=== PATIENT | male | born 1965 | race Caucasian/White ===

== ENCOUNTER 2025-01-28 08:27 | Emergency (ER) | payer OTHER, SELFPAY ==
--- NOTE | 2025-01-28 08:31 | ED_ITS ---
HPI - URI/Sore Throat General Chief Complaint: Upper Respiratory Infection Stated Complaint: vomiting Time Seen by Provider: 01/28/25 08:31 Source: patient Mode of arrival: ambulatory Limitations: no limitations History of Present Illness HPI Narrative: Jacques is a 59-year-old male patient presenting to the clinic today with complaints of body aches, runny nose, cough, nausea vomiting, diarrhea, and chills. Symptoms started yesterday afternoon. Thinks he may have COVID. Denies any chest pain or shortness of breath. Related Data Allergies Allergy/AdvReac Type Severity Reaction Status Date / Time Yostsvr-[id number] Reductase AdvReac Intermediate Weakness Verified 01/28/25 08:53 Inhibitor Review of Systems Review of Systems: Pertinent positives per HPI. Patient denies any rash, headache, visual changes, dizziness, shortness of breath, chest pain, palpitations, constipation, abdominal pain, or any urinary issues. [facility] Family History Family History Other Cerebrovascular accident Diabetes mellitus Family history of malignant neoplasm Hypertension Social History Social History Smoking status: Never smoker Alcohol intake: current Comments At the time of my signature, I reviewed and agree with the nursing past medical, surgical, social, and family history. There is no relevant family history pertinent to the patient complaint. Exam Narrative: General: Well-developed, well nourished, in no apparent distress Head: Normocephalic, atraumatic Eyes: Pupils equally round and reactive to light bilaterally, EOM intact, sclera and conjunctive clear, no discharge, lids normal Ears: TMs intact and clear, ear canals clear, no drainage, grossly hearing normal. Nose: Nares patent, clear nasal discharge, no inflammation, no sinus tenderness. Mouth: Oral pharynx without lesions or masses, good dentition, MMM. Neck: Supple, trachea midline, no enlargement of anterior or posterior cervical nodes, no thyroid masses or goiter palpable. Cardio: Regular rate and rhythm, s1 and s2 normal, no murmur appreciated. Resp: Clear to auscultation bilaterally, no rhonchi, rales, wheezing or rubs Abdomen: Soft, pliable, bowel sounds present in all quadrants, non-tender to palpation, no organomegly, no CVAT tenderness. Course Course Emergency Course: Portions of this record may have been created with voice recognition software. Level of Care: Express Care Visit Vital Signs Vital signs: Vital Signs Temperature 36.4 C 01/28/25 08:43 Pulse Rate 102 H 01/28/25 08:43 Respiratory Rate 18 01/28/25 08:43 Blood Pressure 160/92 H 01/28/25 08:43 Pulse Oximetry 99 01/28/25 08:43 Oxygen Delivery Room Air 01/28/25 08:43 Temperature 36.4 C 01/28/25 08:43 Pulse Rate 102 H 01/28/25 08:43 Respiratory Rate 18 01/28/25 08:43 Blood Pressure 160/92 H 01/28/25 08:43 Pulse Oximetry 99 01/28/25 08:43 Oxygen Delivery Room Air 01/28/25 08:43 Vital signs reviewed MDM - URI/Sore Throat MDM Narrative Medical decision making narrative: At the time of visit patient is resting comfortably on the exam table. Patient appears to be nontoxic. Labs: COVID and influenza testing was performed. COVID testing was positive. Influenza testing was negative. Plan: Patient has COVID-19. Prescription for Zofran and paxlovid was sent to the pharmacy. Supportive measures were discussed with the patient and they voiced understanding discharge instructions and agrees to treatment plan. Return precautions reviewed Differential Diagnosis Differential diagnosis: Likely upper respiratory infection, otitis media, sinusitis, viral infection, bronchitis, influenza, pharyngitis and other (COVID) Lab Data Labs: Lab Results 01/28/25 01/28/25 Range/Units 08:51 08:52 POC Influenza A Ag Negative (Negative) POC Influenza B Ag Negative (Negative) POC SARS CoV-2 Ag Positive (Negative) Discharge Plan Discharge Clinical Impression: COVID-19 Patient Disposition: Home, Self-Care Condition: Stable Instructions: Antibiotic Form, How to Recover from COVID-19 at Home (ED) Additional Instructions: Take prescription medications only as prescribed-Paxlovid and ondansetron Increase fluids and stay well hydrated Tylenol/motrin for pain/fever Flonase and OTC antihistamines as directed Vicks vapor rub to open sinuses Sinus rinses for congestion Cepacol spray, cough drops, throat lozenges, warm tea with honey/lemon, gargle salt water to soothe throat BRAT diet for diarrhea Clear liquids x 24 hours then advance as tolerated for nausea/vomiting Go to the ED if you develop a worsening in your condition- high fever not controlled by Tylenol or Motrin, dehydration, weakness, lethargy, shortness of breath, or chest pain. Follow up with your PCP in 3-5 days if symptoms persist. Patient Language: Paraguayan Prescriptions: New ondansetron 4 mg tablet,disintegrating 4 mg PO Q6H PRN (Reason: nausea and vomiting) 3 Days Qty: 12 0RF Paxlovid 300 mg (150 mg x 2)-100 mg tablets,dose pack See Rx Instructions PO .COMPLEX Qty: 30 0RF Rx Instructions: take TWO 150 mg tablets of nirmatrelvir with ONE 100 mg tablet of ritonavir twice daily for 5 days Follow-up/Referrals: MARCUS,SHIRA BRAVO [Primary Care Provider] - Stand Alone Forms: Work/School Release IP Time of Disposition: 08:58 Quality NIHSS Nursing Documentation ED NIHSS nursing documentation: reviewed/agree
[2025-01-28 08:43] VITALS: BP 160/92; PULSE 102; RESP 18; TEMP 36.4; O2SAT 99
--- OUTSIDE RECORDS SUMMARY | 2025-01-28 08:47 | XMS_ITS | Patient Health Summary ---
Author Organization [facility] Address [address] [place] [address] Care Team Providers Care Gill Box Operator Name Role Phone Nicole Morfin APRN-AQUACULTURE DIRECTOR Primary Care Provider [phone] Note from [facility],non-owned Affiliates and Associated Physician Practices is amultiple site organization consisting of ambulatory clinics and hospital sitesin [place], [place], [place] and [place]. This disclosure is being madepursuant to the Care Everywhere program and may not contain all information available regarding this patient. Last updated 18.[facility] [employer] Allergies * Simvastatin(Unknown) Medications * Be aware that medications may not be up to date on this document. Alwaysverify current medications with the patient. * ALPRAZolam (Xanax) 1 MG tablet(Started 05/14/2023) Take 1 (one) tablet by mouth 2 times daily as needed anxiety * citalopram (CeleXA) 40 MG tablet(Started 05/13/2023) Take 1 (one) tablet by mouth once daily * NA-K-MG sulfates (Suprep) 17.5-3.13-1.6 GM/177ML solution(Started 06/05/2023) TAKE 177ML BY MOUTH EVERY 12 HOURS PER GI INSTRUCTIONS Active Problems Problem Noted Date Diagnosed Date Family history of colon cancer in mother 023 07/06/2023 Overweight with body mass index (BMI) 25.0-29.9 03/06/2023 07/06/2023 Vitamin D deficiency 03/06/2023 07/06/2023 Hyperlipidemia 11/17/2016 06/06/2023 Erectile dysfunction 10/06/2016 07/06/2023 Dystrophic nail 04/07/2016 07/06/2023 Epidermal inclusion cyst 04/07/2016 023 Ventral hernia 04/07/2016 07/06/2023 Social History Tobacco Use Types Packs/Day Years Used Date Smoking Tobacco: Never Smokeless Tobacco: Never Tobacco Cessation:Counseling Given: Not Answered Alcohol Use Standard Drinks/Week Comments Yes 5 (1 standard drink = 0.6 oz pur e alcohol) AUDIT-C Answer Date Recorded Q1: How often do you have a drink containing alc ohol? 2-3 times a week 07/19/2023 Q2: How many drinks containi ng alcohol do you have on a typical day when you are drinking? 1 or 2 07/19/2023 Q3: How often do you have si x or more drinks on one occasion? Never 07/19/2023 Sex and Gender Information Value Date Recorded Sex Assigned at Not on file Gender Identity Not on file Sexual Orientation Not on file Last Filed Vital Signs Vital Sign [place] Time Taken Comments Blood Pressure 150/84 07/19/2023 12:00 PM CDT Pulse 67 07/19/2023 12:00 PM CDT Temperature 36.7 C (98.1 F) 07/19/2023 11:45 AM CDT Respiratory Rate 15 07/19/2023 12:00 PM CDT Oxygen Saturation 98% 07/19/2023 12:00 PM CDT Inhaled Oxygen Concentration - - Weight 84.4 kg (186 lb) 07/19/2023 9:35 AM CDT Height 185.4 cm (6' 1 ) 07/19/2023 9:35 AM CDT Body Mass Index 24.54 07/19/2023 9:35 AM CDT Medical Devices Implanted Type Area Consumer Marketing Manager Device Identifier Shelf Expiration Date Model / Serial / Lot Dib00 10.0 Tecnis Eyhance Iol Implanted:Qty: 1 on 07/05/2023 by Elfego Chanel MD at [facility] Right: Eye [employer] 07/17/2025 [id number] / [id number] / NA Tecnis Eyhance Iol Dib00 +9.5d Implanted:Qty: 1 on 07/19/2023 by Elfego Chanel MD at [facility] Left: Eye [employer] 06/12/2025 [id number] / [id number] / 0000 Procedures * WA REMV CATARACT EXTRACAP,INSERT LENS(Performed 07/19/2023) Performed for Combined forms of age-related cataract of both eyes * WA REMV CATARACT EXTRACAP,INSERT LENS(Performed 07/05/2023) Performed for Combined forms of age-related cataract of both eyes * IOL MASTER(Performed 06/06/2023) Performed for Combined forms of age-related cataract of both eyes * CORNEAL TOPOGRAPHY UNI/BI(Performed 06/06/2023) Performed for Combined forms of age-related cataract of both eyes Results * IOL MASTER (06/06/2023 2:37 PM CDT) Anatomical Region Laterality Modality External-Camera Photography Narrative 06/12/2023 4:26 PM CDT Biometry was performed and reviewed for IOL power calculation using IOL Master for lens selection during surgery. Elfego Chanel MD OPHTHALMOLOGY SCHED ORD W PACS * CORNEAL TOPOGRAPHY UNI/BI (06/06/2023 2:37 PM CDT) Anatomical Region Laterality Modality Head External-Camera Photography Narrative 06/12/2023 4:26 PM CDT reviewed- photos in media tab Elfego Chanel MD OPHTHALMOLOGY SCHED ORD W PACS Care Teams Gill Box Operator Relationship Specialty Start Date End Date Nicole Morfin APRN-BIMAL [address] [place] [id number] PCP - General Nurse Practitioner 06/06/23
--- OUTSIDE RECORDS SUMMARY | 2025-01-28 08:47 | XMS_ITS | Clinical Summary ---
Author Organization [facility] Address [address] [place] [address] Care Team Providers Care Probate Clerk Name Role Phone Nicole Morfin APRN-FINANCIAL CENTER MANAGER Primary Care Provider [phone] Source Comments [facility],non-owned Affiliates and Associated Physician Practices is amultiple site organization consisting of ambulatory clinics and hospital sitesin [place], [place], [place] and [place]. This disclosure is being madepursuant to the Care Everywhere program and may not contain all information available regarding this patient. Last updated 18.[employer] [facility] Allergies Active Allergy Reactions Criticality Noted Date Comments Simvastatin Unknown 04/07/2016 Severe leg pain Medications * Be aware that medications may not be up to date on this document. Alwaysverify current medications with the patient. Medication Sig Dispensed Refills Start Date End Date Status ALPRAZolam (Xanax) 1 MG tablet Take 1 (one) tablet by mouth 2 times daily as needed anxiety 05/14/2023 Active citalopram (CeleXA) 40 MG tablet Take 1 (one) tablet by mouth once daily 05/13/2023 Active NA-K-MG sulfates (Suprep) 17.5-3.13-1.6 GM/177ML solution TAKE 177ML BY MOUTH EVERY 12 HOURS PER GI INSTRUCTIONS 06/05/2023 Active Active Problems Problem Noted Date Diagnosed Date [...] Mass Index 24.54 07/19/2023 9:35 AM CDT Plan of Treatment Health Maintenance Due Date Last Done Comments COLOGUARD (AGES 45-75) - COL ON CA SCREENING 1966 COLON MONITORING 1966 COLONOSCOPY - COLON CA SCREENING 1966 CT COLONOGRAPHY - COLON CA SCREENING 1966 Colorectal Cancer Screening 1966 FIT - COLON CA SCREENING 1966 FLEX SIG - COLON CA SCREENING 1966 LIPID TESTING 1966 HIV SCREENING 1981 HEPATITIS C SCREENING 05/17/1984 DTAP/TDAP/TD VACCINES (1 - Tdap) 1985 HEPATITIS B VACCINE (1 of 3 - 19+ 3-dose series) 1985 PNEUMOCOCCAL VACCINE 50+ (1 of 1 - PCV) 2016 ZOSTER VACCINE (1 of 2) 2016 COVID-19 VACCINE (3 - 2023-2 5 season) 2024 02/18/2021, 01/30/2021 INFLUENZA VACCINE (#1) 2024 DEPRESSION SCREENING 11/19/2024 HIB VACCINE Aged Out No longer eligi ble based on patient's age to complete this topic HPV VACCINE Aged Out No longer eligi ble based on patient's age to complete this topic MENINGOCOCCAL (Group B) VACCINE SHARED DECISION-MAKING Aged Out No longer eligible based on patient's age to complete this topic MENINGOCOCCAL GROUPS A/C/Y/W VACCINE Aged Out No longer eligible b ased on patient's age to complete this topic PNEUMOCOCCAL VACCINE Aged Out No long er eligible based on patient's age to complete this topic Medical Devices Implanted Type Area Speeder Machine Operator Device Identifier Shelf Expiration Date Model / Serial / Lot Dib00 10.0 Tecnis Eyhance Iol Implanted:Qty: 1 on 07/05/2023 by Elfego Chanel MD at [facility] Right: Eye [employer] 07/17/2025 [id number] / [id number] / NA Tecnis Eyhance Iol Dib00 +9.5d Implanted:Qty: 1 on 07/19/2023 by Elfego Chanel MD at [facility] Left: Eye [employer] 06/12/2025 [id number] / [id number] / 0000 Care Teams Probate Clerk Relationship Specialty Start Date End Date Nicole Morfin APRN-BIMAL [address] [place] [id number] PCP - General Nurse Practitioner 06/06/23
--- OUTSIDE RECORDS SUMMARY | 2025-01-28 08:47 | XMS_ITS | Referral Summary ---
Author Organization [facility] Address [address] [place] [address] Care Team Providers Care Fruit Room Hand Name Role Phone Nicole Morfin APRN-TEACHER DRAMATICS Primary Care Provider [phone] Source Comments [facility],non-owned Affiliates and Associated Physician Practices is amultiple site organization consisting of ambulatory clinics and hospital sitesin [place], [place], [place] and [place]. This disclosure is being madepursuant to the Care Everywhere program and may not contain all information available regarding this patient. Last updated 18.[facility] Allergies Active Allergy Reactions Criticality Noted Date [...] 07/19/2023 9:35 AM CDT Plan of Treatment Not on file Medical Devices Implanted Type Area Radio Interference Expert Device Identifier Shelf Expiration Date Model / Serial / Lot Dib00 10.0 Tecnis Eyhance Iol Implanted:Qty: 1 on 07/05/2023 by Elfego Chanel MD at [facility] Right: Eye [employer] 07/17/2025 [id number] / [id number] / NA Tecnis Eyhance Iol Dib00 +9.5d Implanted:Qty: 1 on 07/19/2023 by Elfego Chanel MD at [facility] Left: Eye [employer] 06/12/2025 [id number] / [id number] / 0000 Care Teams Fruit Room Hand Relationship Specialty Start Date End Date Nicole Morfin APRN-BIMAL [address] [place] [id number] PCP - General Nurse Practitioner 06/06/23
--- OUTSIDE RECORDS SUMMARY | 2025-01-28 08:47 | XMS_ITS | Clinical Summary ---
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 ROLLER Gender Identity Not on file Sexual Orientation Not on file Plan of Treatment Health Maintenance Due Date Last Done Comments DTAP/TDAP/TD VACCINES (1 - Tdap) 1985 HEPATITIS B VACCINES (1 of 3 - 19+ 3-dose series) 1985 COLORECTAL SCREENING 2011 Colorectal Cancer Screening 2011 FIT-DNA Q 3 years 2011 FIT/FOBT Q 1 year 2011 Flex Sig/CT Colonography Q 5 years 2011 ZOSTER VACCINE (1 of 2) 2016 INFLUENZA VACCINE (#1) 2024 COVID-19 Vaccine ( - 2023-2 5 season) 2024 02/18/2021, 01/30/2021 PNEUMOCOCCAL VACCINE 0-49 YEARS Aged Out No longer eligible b ased on patient's age to complete this topic Insurance [facility]
--- OUTSIDE RECORDS SUMMARY | 2025-01-28 08:47 | XMS_ITS | Clinical Summary ---
Author Organization [facility] Address [address] [place] [address] Care Team Providers Care Soft Metals Engraver Hand Name Role Phone Nicole Morfin NAKUL Primary Care Provider [phone] Allergies Active Allergy Reactions Criticality Noted Date Comments Simvastatin Unknown 04/07/2016 Severe leg pain Medications ALPRAZolam (XANAX) 1 MG tablet Take 1 tablet (1 mg total) by mouth 2 (two) times daily as needed. FOR ANXIETY Active citalopram (CELEXA) 40 MG tablet Take 1 tablet (40 mg total) by mouth daily. Active Active Problems Problem Noted Date Diagnosed Date Overweight with body mass index (BMI) 25.0-29.9 03/06/2023 Family history of colon cancer in mother 023 Vitamin D deficiency 03/06/2023 Immunity status testing 03/06/2023 Cataract of both eyes, unspecified cataract type 03/06/2023 Hyperlipidemia 11/17/2016 Erectile dysfunction 10/06/2016 Ventral hernia 04/07/2016 Epidermal inclusion cyst 04/07/2016 Dystrophic nail 04/07/2016 Family History Medical History Relation Comments Prostate Cancer Father Colon Cancer Mother Depression Mother Hypertension Mother Mental Health Mother Cancer Paternal Uncle Breast Cancer Sister 1 Colonic polyp Sister 1 Hypertension Sister 1 Colonic polyp Sister 2 Ovarian Cancer Sister 2 Colonic polyp Sister 3 Relation Status Comments Brother Father Alive Mother Paternal Uncle Sister 1 Alive Sister 2 Alive Sister 3 Alive Social History Tobacco Use Types Packs/Day Years Used Date Smoking Tobacco: Never Smokeless Tobacco: Never Tobacco Cessation:Counseling Given: Not Answered Alcohol Use Standard Drinks/Week Comments Yes 0 (1 standard drink = 0.6 oz pur e alcohol) 12 drinks weekly PHQ-2 Answer Date Recorded Patient Health Questionnaire-2 Score 0 06/05/2023 Sex and Gender Information Value Date Recorded Sex Assigned at Not on file Legal Sex Male 11:46 PM CDT Gender Identity Not on file Sexual Orientation Not on file Last Filed Vital Signs Vital Sign [place] Time Taken Comments Blood Pressure 149/90 09/07/2023 1:20 PM CDT Pulse 62 09/07/2023 1:20 PM CDT Temperature 36.6 C (97.8 F) 09/07/2023 11:18 AM CDT Respiratory Rate 18 09/07/2023 1:20 PM CDT Oxygen Saturation 99% 09/07/2023 1:20 PM CDT Inhaled Oxygen Concentration - - Weight 84.8 kg (187 lb) 09/03/2023 12:54 PM CDT Height 180.3 cm (5' 11 ) 09/03/2023 12:54 PM CDT Body Mass Index 26.08 09/03/2023 12:54 PM CDT Plan of Treatment Health Maintenance Due Date Last Done Comments DTaP, Tdap and Td Vaccines ( 1 - Tdap) 1985 Hepatitis B Vaccines (1 of 3 - 19+ 3-dose series) 1985 Zoster Vaccines (1 of 2) 2016 Annual Physical 03/06/2024 03/06/2023 COVID-19 Vaccine (3 - 2023-2 5 season) 2024 02/18/2021, 01/30/2021 Influenza Adult (#1) 2024 PHQ-2 (Physician [place]) 11/19/2024 06/05/2023 Colorectal Cancer Screening Colonoscopy (10 Years) 09/07/2033 09/07/2023, 05/09/2016 Hepatitis C Completed 03/13/2023 Meningococcal B Vaccine Aged Out No l onger eligible based on patient's age to complete this topic Meningococcal Vaccine Aged Out No vikas jeannette eligible based on patient's age to complete this topic Pneumococcal Vaccine: Pediatrics (0 to 5 Years) and At-Risk Patients (6 to 64 Years) Aged Out No longer eligible b ased on patient's age to complete this topic RSV Immunizations Under 20 Months Aged Out No longer eligible b ased on patient's age to complete this topic Procedures Procedure Name Priority Date/Time Associated Diagnosis Comments HEPATITIS C ANTIBODY Routine 03/13/2023 10:30 AM CDT Encounter for hepatitis C screening test for low risk patient COLONOSCOPY Routine 05/09/2016 12:00 AM CDT from Last 3 Months or Most Recently Relevant to Health Maintenance Results * HEPATITIS C ANTIBODY ([facility] ONLY) (03/13/2023 10:30 AM CDT) HEPATITIS C AB NON-REACTI VE NON-REACT WEI 03/13/2023 6:42 PM CDT [facility] Comment: ANTIBODIES TO HCV NOT DETECTED. DOES NOT EXCLUDE THE POSSIBILITY OF EXPOSURE TO HCV. 03/13/2023 10:3 0 AM CDT Nicole Morfin DREDGE PIPE INSTALLER LABORATORY Final Result Performing Organization Address [facility] Co de Phone Number [facility] [address] [place] [address], [phone] * Colonoscopy (05/09/2016 12:00 AM CDT) 05/09/2016 05/09/2016 Narrative [facility] TO EPIC CONVERSION - 05/09/2016 12:00 AM CDT Documented hx of procedure Procedure Note Dmitry Castellon MD - 09/22/2018 Documented hx of procedure us Generic Lucy Castellon MD GI PROCEDURE ORDERABLES Final Result Performing Organization Address [facility] Co de Phone Number [facility] TO EPIC CONVERSION from Last 3 Months or Most Recently Relevant to Health Maintenance Insurance [employer] [place] [employer] [facility] Care Teams Soft Metals Engraver Hand Relationship Specialty Start Date End Date Nicole Morfin FNP [address] [place] [id number] PCP - General Nurse Practitioner Family 03/06/23
--- OUTSIDE RECORDS SUMMARY | 2025-01-28 08:47 | XMS_ITS | Encounter Summary ---
Author Organization [facility] Address [address] [place] [address] Care Team Providers Care Sole Seamer Name Role Phone Dmitry Castellon MD Primary Care Provider Unavailable Nicole Morfin Primary Care Provider [phone] Encounter Details Date Type Department Care Team (Late st Contact Info) Description 04/20/2016 Abstract [facility] CONVERSION [address] [place] [address] Dmitry Castellon MD Social History Tobacco Use Types Packs/Day Years Used Date Smoking Tobacco: Never Sex and Gender Information Value Date Recorded Sex Assigned at Not on file Legal Sex Male 11:46 PM CDT Gender Identity Not on file Sexual Orientation Not on file documented as of this encounter Plan of Treatment Not on file documented as of this encounter Visit Diagnoses Not on filedocumented in this encounter Care Teams Sole Seamer Relationship Specialty Start Date End Date Dmitry Castellon MD PCP - General 05/31/15 01/28/18 Nicole Morfin FNP [address] [place] [id number] PCP - General Nurse Practitioner Family 03/06/23 documented as of this encounter
[2025-01-28 08:52] LABS: EDCOVIDSCREEN Positive (Negative)
[2025-01-28 08:54] LABS: EDINFLUASCREEN Negative (Negative); EDINFLUBSCREEN Negative (Negative)
== END 2025-01-28 08:59 | disposition home or self-care (01) ==
PROVIDERS: Emergency Provider Nurse Practitioner Family; PCP Nurse Practitioner Family
DX: U07.1 COVID-19 (principal)
CPT/HCPCS: 87426; 87804; 99213; G0463